=== PATIENT | female | born 1975 | race Caucasian/White ===

== ENCOUNTER 2022-07-27 16:23 | Emergency (ER) | payer OTHER, SELFPAY ==
--- NOTE | ~2022-07-27 | XR_ITS ---
EXAMINATION: XR ribs LT 2V w CXR 2V Exam Date/Time: 07/27/2022 17:50 [facility] HISTORY: LEFT SIDE PAIN, PT. HEARD A POP TO RIBS TODAY, NKI, SMOKER Comparison: None available. RESULT: Lines, tubes, and devices: None. Lungs and pleura: Clear. Mild emphysematous change. Cardiothymic silhouette: Unremarkable. Other: No acute osseous or upper abdominal finding. IMPRESSION: No acute cardiopulmonary process. No acute osseous findings in the left rib. Reviewed, dictated and finalized at location [facility]
[2022-07-27 16:26] VITALS: BP 133/78; PULSE 98; RESP 20; TEMP 36.8; O2SAT 100
[2022-07-27] MEDS: HYDROcodone/acetaminophen (*CRX) 5-325 MG TABLET 1 TAB PO (18:22)
--- NOTE | 2022-07-27 18:30 | ED.GENADULT ---
HPI - General Adult General Chief complaint: Abdominal Pain Stated complaint: abd pain Time Seen by Provider: 07/27/22 17:18 History of Present Illness HPI narrative: Patient is a 47-year-old female who presents ER with some pain over her left anterior chest wall. Does not over the abdomen is located over the ribs. Reports she is stretching this morning and felt a pot and she has had increased aching. No dyspnea. No fever chills or sweats. No additional trauma. Related Data Allergies Allergy/AdvReac Type Severity Reaction Status Date / Time No Known Allergies Allergy Unverified 03/08/13 14:32 Review of Systems Review of Systems: All systems reviewed & are unremarkable except as noted in HPI and below Constitutional: Constitutional: Denies chills and Denies fever(s) Cardiovascular: Cardiovascular: Reports chest pain (Chest wall), Denies rapid heart rate and Denies radiating jaw, neck or arm pain Respiratory: Respiratory: Denies chest congestion, Denies cough and Denies dyspnea Gastrointestinal: Gastrointestinal: Denies abdominal pain, Denies diarrhea, Denies nausea and Denies vomiting PMFSH Past Medical History Medical History (Updated 07/27/22 @ 18:39 by Shankar Navarrete MD) Healthy female adult Surgical History Surgical History (Updated 07/27/22 @ 18:33 by Shankar Navarrete MD) Previous section Exam Narrative: GENERAL: Well-appearing, well-nourished, and in no acute distress. HEAD: Normocephalic, atraumatic. CHEST: Clear to auscultation. No respiratory distress. Mild left anterior chest wall pain without point tenderness. I can hear a click when she takes a deep breath. HEART: Regular rate and rhythm. Normal peripheral pulses. ABDOMEN: Soft, nontender, nondistended. EXTREMITIES: Normal range of motion. No edema. NEURO: Alert and oriented x3. PSYCH: Normal mood and affect. Course Course Emergency Course: Patient could have a small fracture of her ribs still despite not being visualized on x-ray. No pneumothorax. Discharge home with supportive care. Vital Signs Vital signs: Vital Signs Temperature 98.2 F 07/27/22 16:26 Pulse Rate 98 07/27/22 16:26 Respiratory Rate 20 07/27/22 16:26 Blood Pressure 133/78 07/27/22 16:26 Pulse Oximetry 100 07/27/22 16:26 Oxygen Delivery Room Air 07/27/22 16:26 Temperature 98.2 F 07/27/22 16:26 Pulse Rate 98 07/27/22 16:26 Respiratory Rate 20 07/27/22 16:26 Blood Pressure 133/78 07/27/22 16:26 Pulse Oximetry 100 07/27/22 16:26 Oxygen Delivery Room Air 07/27/22 16:26 Medical Decision Making Vital Signs Vital Signs: Vital Signs Temperature 98.2 F 07/27/22 16:26 Pulse Rate 98 07/27/22 16:26 Respiratory Rate 20 07/27/22 16:26 Blood Pressure 133/78 07/27/22 16:26 Pulse Oximetry 100 07/27/22 16:26 Oxygen Delivery Room Air 07/27/22 16:26 Temperature 98.2 F 07/27/22 16:26 Pulse Rate 98 07/27/22 16:26 Respiratory Rate 20 07/27/22 16:26 Blood Pressure 133/78 07/27/22 16:26 Pulse Oximetry 100 07/27/22 16:26 Oxygen Delivery Room Air 07/27/22 16:26 Imaging Data Radiologist's impression: ITS Impressions Ribs w/Chest X-Ray 07/27/22 18:23 IMPRESSION: No acute cardiopulmonary process. No acute osseous findings in the left rib. Discharge Plan Discharge Clinical Impression: Chest wall pain Patient Disposition: Home, Self-Care Condition: Stable Instructions: Chest Wall Pain (ED) Additional Instructions: Return the ER if you cannot breathe, you cannot swallow, you have exertional chest pain, or you have additional concerns. Take Tylenol or ibuprofen as needed for pain. Follow-up/Referrals: Aguilar Dupont MD [Physician] - 1 Week PHYSICIAN,STRATEGIC ADVISOR [Primary Care Provider] -
[2022-07-27 18:39] VITALS: BP 140/84; PULSE 85; RESP 16; O2SAT 98
== END 2022-07-27 18:40 | disposition home or self-care (01) ==
PROVIDERS: Emergency Provider Emergency Medicine
DX: R07.89 Other chest pain (principal)
CPT/HCPCS: 71046; 71100; 99283; A9270

== ENCOUNTER → 2023-05-22 17:50 | Emergency (ER) | payer OTHER, SELFPAY ==
[2023-05-22 18:54] VITALS: BP 151/80; PULSE 89; RESP 18; TEMP 37.1; O2SAT 100
== END | disposition left against medical advice (07) ==
DX: L02.11 Cutaneous abscess of neck (principal)
CPT/HCPCS: 99199

== ENCOUNTER 2023-07-10 08:00 | Emergency (ER) | payer OTHER, SELFPAY ==
[2023-07-10 08:02] VITALS: BP 122/81; PULSE 126; RESP 20; TEMP 36.9; O2SAT 100
--- NOTE | 2023-07-10 08:18 | ED.GENADULT ---
HPI - General Adult General Chief complaint: Psychiatric Symptoms Stated complaint: suicidal ideation Time Seen by Provider: 07/10/23 08:05 History of Present Illness HPI narrative: Patient is a 47-year-old female who presents ER with concerns for possible suicidal ideation. Patient's son was trying to wake her and was having trouble and so another individual called the paramedics thinking she may have tried commit suicide. Patient has history of salivary gland cancer with multiple metastases. She has had a skin graft from her left thigh towards her right face. She recently left AMA from [facility] where she was getting her care because she wanted to watch her 12-year-old son. Patient is currently scheduled to be direct admitted back to [facility] tomorrow for further care. She has no difficulty breathing or swallowing. She has some chronic drainage from her right cheek skin graft. She denies any SI or HI. She denies any drug ingestion. Related Data Allergies Allergy/AdvReac Type Severity Reaction Status Date / Time No Known Allergies Allergy Unverified 03/08/13 14:32 Review of Systems Review of Systems: All systems reviewed & are unremarkable except as noted in HPI and below Constitutional: Constitutional: Denies chills, Denies fatigue and Denies fever(s) ENT: Denies nasal congestion and Denies sore throat Cardiovascular: Cardiovascular: Denies chest pain, Denies rapid heart rate and Denies radiating jaw, neck or arm pain Respiratory: Respiratory: Denies cough and Denies dyspnea Gastrointestinal: Gastrointestinal: Denies abdominal pain, Denies nausea and Denies vomiting PMFSH Past Medical History Medical History (Updated 07/10/23 @ 19:40 by Shankar Navarrete MD) Salivary gland cancer Surgical History Surgical History (Updated 07/10/23 @ 19:40 by Shankar Navarrete MD) Hx of skin graft Previous section Exam Narrative: GENERAL: Well-appearing, well-nourished, and in no acute distress. HEAD: Normocephalic, atraumatic. ENT: Mucous membranes moist. Right neck. There and she had a skin graft. Additional swelling in the area. Nonpulsatile. No purulent drainage but there is some clear drainage noted. CHEST: Clear to auscultation. No respiratory distress. HEART: Regular rate and rhythm. Normal peripheral pulses. ABDOMEN: Soft, nontender, nondistended. EXTREMITIES: Normal range of motion. No edema. SKIN: Warm, dry, no rash. Well-healing surgical site to the left thigh where there is a drain in place. NEURO: Alert and oriented x3. PSYCH: Normal mood and affect. Course Course Emergency Course: Patient evaluated. Denies any SI/HI. Family came to pick the patient up. Before I could go talk to the family and the patient together the patient had eloped with her family members. She had reported that she was going to go to [facility] where she is scheduled to be direct admitted yesterday but she is going to go there today. Vital Signs Vital signs: Vital Signs Temperature 98.5 F 07/10/23 08:02 Pulse Rate 126 H 07/10/23 08:02 Respiratory Rate 20 07/10/23 08:02 Blood Pressure 122/81 07/10/23 08:02 Pulse Oximetry 100 07/10/23 08:02 Oxygen Delivery Room Air 07/10/23 08:02 Temperature 98.5 F 07/10/23 08:02 Pulse Rate 126 H 07/10/23 08:02 Respiratory Rate 20 07/10/23 08:02 Blood Pressure 122/81 07/10/23 08:02 Pulse Oximetry 100 07/10/23 08:02 Oxygen Delivery Room Air 07/10/23 08:02 Medical Decision Making Vital Signs Vital Signs: Vital Signs Temperature 98.5 F 07/10/23 08:02 Pulse Rate 126 H 07/10/23 08:02 Respiratory Rate 20 07/10/23 08:02 Blood Pressure 122/81 07/10/23 08:02 Pulse Oximetry 100 07/10/23 08:02 Oxygen Delivery Room Air 07/10/23 08:02 Temperature 98.5 F 07/10/23 08:02 Pulse Rate 126 H 07/10/23 08:02 Respiratory Rate 20 07/10/23 08:02 Blood Pressure 122/81 07/10/23 08:02 Pulse Oximetry 100 07/10/23 08:02
--- NOTE | 2023-07-10 08:33 | PC.NURSE ---
Pt said she does not want to be here she needs to go to [place] where all of her doctors are. Pt Denies any SI, she never will hurt her self and she never done anything to hurt herself. Pt said wants to sign AMA so she can go to [place]. Pt family here at the hospital, pt eloped through the EMS doors, pt walking out with the family. Pt eloped after being seen by the ED provider.
== END 2023-07-10 09:29 | disposition left against medical advice (07) ==
LOC: ANHED 09:15
PROVIDERS: Emergency Provider Emergency Medicine
DX: T86.828 Other complications of skin graft (allograft) (autograft) (principal); C08.9 Malignant neoplasm of major salivary gland, unspecified; C79.9 Secondary malignant neoplasm of unspecified site; Y83.2 Surgical operation with anastomosis, bypass or graft as the cause of abnormal reaction of the patient, or of later complication, without mention of misadventure at the time of the procedure
CPT/HCPCS: 99281